=== PATIENT | female | born 1955 | race Caucasian/White ===

== ENCOUNTER → 2018-10-13 | Outpatient (CLI) | payer BC ==
--- NOTE | 2018-10-14 12:04 | Diagnostic Imaging Report ---
INDICATION: Routine screening. COMPARISON: 07/07/2014 and 05/18/2013. TECHNIQUE: 2D and 3D bilateral screening mammography was performed with CAD. FINDINGS: Both breasts are heterogeneously dense, limiting the sensitivity of mammography. The parenchymal pattern is stable. No dominant mass or malignant appearing microcalcifications are seen. The axillae are unremarkable. IMPRESSION: No mammographic features suspicious for malignancy are identified. ACR BI-RADS Category 1: Negative. Result letter will be mailed to the patient. Note: At least 10% of breast cancer is not imaged by mammography. Dictated by: Dictated on workstation # [id number]
== END ==
LOC: RAD 10:55
PROVIDERS: ATTEND Obstetrics & Gynecology
DX: Z12.31 Encounter for screening mammogram for malignant neoplasm of breast (principal)
CPT/HCPCS: 77067

== ENCOUNTER 2019-01-01 20:20 | Emergency (ER) | payer BC ==
[~2019-01-01] VITALS: Ht 157.5 cm; Wt 67.1 kg
--- NOTE | 2019-01-01 20:26 | NUR ---
C COLLAR APPLIED AT THIS TIME BY Gonzalo HOLLINS APRN.
--- NOTE | 2019-01-01 20:35 | ED Head Injury ---
General Stated Complaint: FALL/FACIAL INJ Source: patient Exam Limitations: no limitations History of Present Illness Date Seen by Provider: Jan 01, 2019 Time Seen by Provider: 20:32 Initial Comments To ER by private vehicle with reports of a head injury. Patient was trying to get into the vehicle when she tripped, landed on her knees and then fell forward striking the nose on the ground. She initially had a bloody nose which has since stopped. She does have some swelling around the nose, there was brief loss of consciousness, headache, diaphoresis, and yawning. She does have some midline posterior neck pain as well. 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 Occurred: just prior to arrival Severity: moderate Location: frontal Loss of Consciousness: no loss of consciousness Allergies and Home Medications Allergies Coded Allergies: No Known Drug Allergies (Unverified , 12/22/14) Home Medications Amoxicillin 500 Mg Capsule, 500 MG PO TID Prescribed by: JENIFFER HOLLINS on 01/01/19 [id number] Patient Home Medication List Home Medication List Reviewed: Yes Review of Systems Review of Systems Constitutional: see HPI Eyes: No Symptoms Reported Ears, Nose, Mouth, Throat: no symptoms reported Respiratory: no symptoms reported Cardiovascular: no symptoms reported Genitourinary: no symptoms reported Musculoskeletal: no symptoms reported Skin: no symptoms reported Psychiatric/Neurological: No Symptoms Reported Endocrine: No Symptoms Reported (and this is on estrogen mother) Hematologic/Lymphatic: No Symptoms Reported Past Rpwrvim-Blirco-Qwmpss Hx Patient Social History Recent Foreign Travel: No Contact w/Someone Who Travel: No Physical Exam Vital Signs Vital Signs - First Documented 01/01/19 01/01/19 20:26 21:31 Temp 96.7 Pulse 78 Resp 18 B/P (MAP) 154/101 (118) Pulse Ox 100 Capillary Refill : Height, Weight, BMI Height: '" Weight: lbs. oz. kg; BMI Method: General Appearance: WD/WN, no apparent distress, other (. Cervical collar applied. There is no septal hematoma or active nasal bleeding. ) HEENT: PERRL/EOMI, normal ENT inspection Neck: non-tender, full range of motion Respiratory: no respiratory distress, no accessory muscle use Extremities: normal range of motion, non-tender Psychiatric: alert [place] Nerves: normal hearing, normal speech, PERRL Skin: normal color, warm/dry Gabriel Coma Score Best Eye Response: (4) Open Spontaneously Best Verbal Response: (5) Oriented Best Motor Response: (6) Obeys Commands [place] Total: 15 Progress/Results/Core Measures Results/Orders My Orders Orders - JENIFFER HOLLINS APRN Ct Head/Face/Cervical Wo (01/01/19 20:31) Knee, 2 Views, Bilateral (01/01/19 20:31) Rx-Hydrocodone/Apap 5-325 Mg (Rx-Vicodin (01/01/19 21:30) Amoxicillin Capsule (Polymox Capsule) (01/01/19 21:30) Amoxicillin Capsule (Polymox Capsule) (01/01/19 21:21) Medications Given in ED Current Medications Medications Dose Ordered Sig/Nida Route Start Time Stop Time Status Last Admin Dose Admin Acetaminophen/ Hydrocodone Bitart 1 ea Q4H PRN PO 01/01/19 21:30 01/01/19 21:33 DC 01/01/19 21:26 1 EA Vital Signs/I&O 01/01/19 01/01/19 20:26 21:31 Temp 96.7 96.7 Pulse 78 72 Resp 18 18 B/P (MAP) 154/101 (118) 148/76 (100) Pulse Ox 100 Diagnostic Imaging Diagonstic Imaging: CT Comments NAME: ROGERIO PERES [facility] REC#: [id number] PT STATUS: REG ER : 1955 PHYSICIAN: JENIFFER HOLLINS APRN ADMIT DATE: 01/01/19/ER Draft Date of Exam:01/01/19 CT HEAD/FACE/CERVICAL WO PROCEDURE: CT head, face and cervical spine without contrast. TECHNIQUE: Multiple contiguous axial images were obtained through the head, neck and facial bones without the use of intravenous contrast. Sagittal and coronal reformations through the cervical spine and facial bones were also performed. Auto Exposure Controls were utilized during the CT exam to meet ALARA standards for radiation dose reduction. INDICATION: Fall, head, neck and face pain, trauma. COMPARISON: None. FINDINGS: CT head: Ventricles are normal in size, shape and position. There is no midline shift or mass effect. There is no hemorrhage or evidence of acute ischemia. No extra-axial fluid collection is seen. There is no skull fracture. IMPRESSION: Negative CT head. CT face: There is a nondisplaced fracture of the nasal bone. Nasal septum is midline. No additional facial fracture is seen. The globes are intact. Temporomandibular joints appear grossly normal. There is no osseous lesion. Paranasal sinuses are clear. IMPRESSION: Nondisplaced nasal bone fracture. CT cervical spine: Alignment is normal. There is no subluxation or fracture. Mild to moderate degenerative changes are seen throughout the disc spaces and facet joints. No soft tissue abnormality is seen. IMPRESSION: No traumatic malalignment or fracture. Dictated on workstation # [id number] Dict: 01/01/192055 Trans: 01/01/192110 [facility] [id number] Interpreted by: ARACELI HOSKINS Electronically signed by: Departure Communication (Admissions) 2-C collar removed. Alert and oriented GCS 15. No nausea. Offered Zofran but patient declined. We will discharge 2. Headache. Patient was concerned about the etiology of her yawning. Discussed with her the likely from the concussion or perhaps with the diaphoresis she had a vasovagal episode at some point. Impression Primary Impression: Nasal bone fracture Qualified Codes: S02.2XXA - Fracture of nasal bones, initial encounter for closed fracture Additional Impression: Concussion Qualified Codes: S06.0X9A - Concussion with loss of consciousness of unspecified duration, initial encounter Disposition: 01 HOME, SELF-CARE Condition: Stable Departure-Patient Inst. Decision time for Depature: 21:17 Referrals: SPIKE PARKER MD (PCP/Family) Primary Care Physician Patient Instructions: Concussion, Adult (DC), Nose Fracture Add. Discharge Instructions: 1. Ice pack to the nose at 30 minute intervals 2. Pain medication as directed 3. Antibiotics as directed Scripts Amoxicillin (Amoxicillin) 500 Mg Capsule 500 MG PO TID, #9 CAP 0 Refills Prov: JENIFFER HOLLINS SILK SCREEN PROCESSOR 01/01/19 JENIFFER HOLLINS SILK SCREEN PROCESSOR Jan 01, 2019 20:35
--- NOTE | 2019-01-01 21:12 | Diagnostic Imaging Report ---
PROCEDURE: CT head, face and cervical spine without contrast. TECHNIQUE: Multiple contiguous axial images were obtained through the head, neck and facial bones without the use of intravenous contrast. Sagittal and coronal reformations through the cervical spine and facial bones were also performed. Auto Exposure Controls were utilized during the CT exam to meet ALARA standards for radiation dose reduction. INDICATION: Fall, head, neck and face pain, trauma. COMPARISON: None. FINDINGS: CT head: Ventricles are normal in size, shape and position. There is no midline shift or mass effect. There is no hemorrhage or evidence of acute ischemia. No extra-axial fluid collection is seen. There is no skull fracture. IMPRESSION: Negative CT head. CT face: There is a nondisplaced fracture of the nasal bone. Nasal septum is midline. No additional facial fracture is seen. The globes are intact. Temporomandibular joints appear grossly normal. There is no osseous lesion. Paranasal sinuses are clear. IMPRESSION: Nondisplaced nasal bone fracture. CT cervical spine: Alignment is normal. There is no subluxation or fracture. Mild to moderate degenerative changes are seen throughout the disc spaces and facet joints. No soft tissue abnormality is seen. IMPRESSION: No traumatic malalignment or fracture. Dictated by: Dictated on workstation # [id number]
[2019-01-01] MEDS ORDERED: AMOX500C2 PO (21:18)
--- NOTE | 2019-01-01 21:19 | Diagnostic Imaging Report ---
INDICATION: Fall, bilateral knee pain COMPARISON: None FINDINGS: Multiple views bilateral knees demonstrate no fracture or dislocation. Articular surfaces normal. No joint effusion or foreign body. IMPRESSION: Negative bilateral knees Dictated by: Dictated on workstation # [id number]
[2019-01-01] MEDS ORDERED: AMOXICILLIN 500 MG (POLYMOX) CAP PO STA (21:21)
--- NOTE | 2019-01-01 21:25 | NUR ---
C COLLAR REMOVED AT THIS TIME BY Gonzalo HOLLINS APRN.
[2019-01-01] MEDS ORDERED: AMOXICILLIN 250 MG (POLYMOX) CAP PO SCH (21:30)
[2019-01-01] MEDS ORDERED: RX-HYDROCODONE/APAP 5/325 MG #4 TAB PK PO PRN (21:30)
[2019-01-01 21:31] VITALS: BP 148/76
== END 2019-01-01 21:33 | disposition home or self-care (01) ==
LOC: EDUNIT# 20:20 → ER 20:21
DX: S06.0X0A Concussion without loss of consciousness, initial encounter (principal); S02.2XXA Fracture of nasal bones, initial encounter for closed fracture; R40.2142 Coma scale, eyes open, spontaneous, at arrival to emergency department; R40.2252 Coma scale, best verbal response, oriented, at arrival to emergency department; R40.2362 Coma scale, best motor response, obeys commands, at arrival to emergency department; W01.198A Fall on same level from slipping, tripping and stumbling with subsequent striking against other object, initial encounter
CPT/HCPCS: 70450; 70486; 72125

== ENCOUNTER 2019-05-06 12:36 | Outpatient (CLI) | payer BC ==
[~2019-05-06] VITALS: Ht 160 cm; Wt 72.9 kg
[~2019-05-06 12:36] MED LIST: AMOX500C2 PO
[2019-05-06] MEDS ORDERED: CALC600T12 PO (12:51)
[2019-05-06] MEDS ORDERED: MAGN400C PO (12:51)
[2019-05-06] MEDS ORDERED: ESTR0.62 PO (12:51)
[2019-05-06] MEDS ORDERED: SIMV40TA4 PO (12:51)
[2019-05-06] MEDS ORDERED: ASPI-586 PO (12:51)
[2019-05-06] MEDS ORDERED: TRIA1CAP4 PO (12:51)
[2019-05-06] MEDS ORDERED: DULO60CA59 PO (12:51)
[2019-05-06 12:53] VITALS: BP 164/88
[2019-05-06] MEDS ORDERED: OMEP40CA36 PO (12:53)
[2019-05-06 13:26] LABS: BASOPHILS % (AUTO) 0 % (0-10); EOSINOPHILS # (AUTO) 0.1 10^3/uL (0.0-0.3); EOSINOPHILS % (AUTO) 1 % (0-10); HEMATOCRIT 35 % (35-52); HEMOGLOBIN 11.6 G/DL (11.5-16.0); LYMPHOCYTES # (AUTO) 2.4 X 10^3 (1.0-4.0); LYMPHOCYTES % (AUTO) 24 % (12-44); MEAN CORPUSCULAR HEMOGLOBIN 28 PG (25-34); MEAN CORPUSCULAR HGB CONC 33 G/DL (32-36); MEAN CORPUSCULAR VOLUME 84 FL (80-99); MEAN PLATELET VOLUME 9.5 FL (7.4-10.4); MONOCYTES # (AUTO) 0.7 X 10^3 (0.0-1.0); MONOCYTES % (AUTO) 7 % (0-12); NEUTROPHILS # (AUTO) 6.7 X 10^3 (1.8-7.8); NEUTROPHILS % (AUTO) 68 % (42-75); PLATELET COUNT 411 10^3/uL (130-400); RED CELL DISTRIBUTION WIDTH 15.6 % (10.0-14.5); WHITE BLOOD COUNT 9.9 10^3/uL (4.3-11.0)
== END 2019-05-06 15:30 | disposition home or self-care (01) ==
LOC: PREOP 12:36
PROVIDERS: ATTEND Obstetrics & Gynecology
DX: Z01.812 Encounter for preprocedural laboratory examination (principal); Z11.2 Encounter for screening for other bacterial diseases; N81.10 Cystocele, unspecified; N39.3 Stress incontinence (female) (male)
CPT/HCPCS: 36415; 85025; 87081

== ENCOUNTER 2019-05-10 06:11 | Day surgery (SDC) | payer BC ==
[2019-05-10] VITALS (12 sets, daily range): BP systolic 132–167; BP diastolic 59–84
[~2019-05-10] VITALS: Ht 160 cm; Wt 72.9 kg
[~2019-05-10 06:11] MED LIST changes: +ASPI-586 PO; +CALC600T12 PO; +DULO60CA59 PO; +ESTR0.62 PO; +MAGN400C PO; +OMEP40CA36 PO; +SIMV40TA4 PO; +TRIA1CAP4 PO
[2019-05-10] MEDS ORDERED: LACTATED RINGERS 1,000 ML IV PRN (06:16)
[2019-05-10] MEDS ORDERED: cefTRIAXone FOR IV USE 1,000 MG in WATER (STERILE) FOR INJECTION 10 ML IV ONE (06:30)
[2019-05-10] MEDS ORDERED: ESTRADIOL VAGINAL CREAM 42.5 GM (ESTRACE) VG ONE (06:34)
[2019-05-10] MEDS ORDERED: VASOPRESSIN INJECTION 20 UNIT/ML VIAL ONE (06:34)
[2019-05-10] MEDS ORDERED: NS (IVPB) 100 ML ONE (06:34)
[2019-05-10] MEDS ORDERED: ESTROGENS CONJ. CREAM 30 GM (PREMARIN) TUBE ONE (06:36)
[2019-05-10] MEDS ORDERED: WATER (STERILE) FOR INJECTION 10 ML ONE (06:47)
[2019-05-10] MEDS ORDERED: cefTRIAXone 1,000 MG IV (ROCEPHIN) VIAL ONE (06:47)
[2019-05-10] MEDS ORDERED: proPOfol 200 MG/20 ML (DIPRIVAN) VIAL IV ONE (07:04)
[2019-05-10] MEDS ORDERED: LIDOCAINE PF 2% 5 ML (XYLOCAINE) VIAL ONE (07:04)
[2019-05-10] MEDS ORDERED: SEVOFLURANE (ULTANE) 15 ML INHAL SOLN ONE ×3 (07:04→08:00)
[2019-05-10] MEDS ORDERED: fentaNYL INJECTION 100 MCG/2 ML AMP ONE (07:05)
[2019-05-10] MEDS ORDERED: MIDAZOLAM 2 MG/2 ML (VERSED) VIAL ONE (07:05)
--- NOTE | 2019-05-10 07:07 | History & Physical-Surgical ---
HPO-Surgical History of Present Illness Chief Complaint: Leakage of urine Diagnosis/Surgical Indication: RICHARDSON, CYSTOCELE Procedure: ANTERIOR COLPORRHAPHY, PVS WITH CYSTO Date of Surgery: May 10, 2019 Weight (Pounds): 148 Height (Feet): 5 Height (Inches): 2.00 Allergies and Home Medications Allergies Coded Allergies: No Known Drug Allergies (Unverified , 05/06/19) Home Medications Aspirin 81 Mg Tablet.dr, 81 MG PO DAILY, (Reported) Calcium Carbonate 600 Mg Tablet, 600 MG PO DAILY, (Reported) Duloxetine HCl 60 Mg Capsule.dr, 60 MG PO HS, (Reported) Estrogens, Conjugated 0.625 Mg Tablet, 0.625 MG PO HS, (Reported) Magnesium Oxide 400 Mg Capsule, 400 MG PO DAILY, (Reported) Omeprazole 40 Mg Capsule.dr, 40 MG PO BID, (Reported) Simvastatin 40 Mg Tablet, 40 MG PO HS, (Reported) Triamterene/Hydrochlorothiazid 1 Each Capsule, 1 EACH PO DAILY, (Reported) Patient Home Medication List Home Medication List Reviewed: Yes Past Ctfpwbb-Tlkydb-Sbpelu Hx Patient Social History Marrital Status: Alcohol Use: Rarely Uses Recreational Drug Use: No Smoking Status: Never a Smoker 2nd Hand Smoke Exposure: No Recent Foreign Travel: No Contact w/other who traveled: No Recent Hopitalizations: No Recent Infectious Disease Expo: No Immunizations Up To Date Pediatric: No Date of Influenza Vaccine: Feb 22, 2019 Seasonal Allergies Seasonal Allergies: Yes Surgeries Yes Hysterectomy, Oophorectomy, Tonsillectomy Respiratory No Cardiovascular Yes ("FLUID RETENTION") High Cholesterol, Hypertension Neurological Yes Headaches /Migraines Reproductive System Sexually Transmitted Disease: No HIV/AIDS: No 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: Hysterectomy Genitourinary Yes (RICHARDSON, CYSTOCELE) Gastrointestinal Yes Gastroesophageal Reflux, Chronic Constipation Musculoskeletal Yes Chronic Back Pain Endocrine History of Endocrine Disorders: No HEENT History of HEENT Disorders: Yes (GLASSES) Loss of Vision: Denies Hearing Impairment: Denies Cancer No Psychosocial History of Psychiatric Problem: Yes Behavioral Health Disorders: Depression Integumentary History of Skin or Integumenta: No Blood Transfusions History of Blood Disorders: No Adverse Reaction to a Blood Tr: No (N/A) Exam Vital Signs Vital Signs 05/10/19 06:30 Temp 36.3 Pulse 80 Resp 18 B/P (MAP) 149/77 (101) Pulse Ox 98 O2 Delivery Room Air Capillary Refill : General Appearance: Alert, Oriented X3 HEENT: Atraumatic Respiratory: Clear to Auscultation Cardiovascular: Regular Rate Abdominal: No Tenderness Extremities: No Cyanosis Skin: No Significant Lesion Neuro: Normal Gait, Normal Speech Psych/Mental Status: Mental Status NL Assessment/Plan Admission Diagnosis 64 yo female with RICHARDSON Grade 3 cystocele Admission Status: Observation Reason for Inpatient Admission: Overnight stay for cystocele repair. SHARLENE ABERNATHY DO May 10, 2019 07:06
[2019-05-10] MEDS ORDERED: HYDR-4226 PO (07:12)
[2019-05-10] MEDS ORDERED: IBUP-1773 PO (07:12)
--- NOTE | 2019-05-10 07:13 | Discharge Inst-Women's Service ---
Discharge Inst-Women's Serv Depart Medication/Instructions New, Converted or Re-Newed RX: RX on Chart Problems Reviewed?: Yes Consults/Follow Up Additional Follow Up: Yes Orders/Referrals Dr. Abernathy in 6 weeks Activity Activity: Activity as Tolerated Driving Instructions: No Driving for 2 Weeks NO SMOKING: NO SMOKING Nothing Inside Vagina: No Douching, No [place], No Tampons Diet Discharge Diet: No Restrictions Symptoms to Report to : Bleeding Excessive, Pain Increased, Fever Over 101 Degrees F, Vaginal Bleeding Increase, Questions/Concerns For Any Problems or Questions: Contact Your Physician SHARLENE ABERNATHY DO May 10, 2019 07:13
[2019-05-10] MEDS ORDERED: HYDROmorphone 2 MG/ML VIAL (DILAUDID) IV PRN (07:15)
[2019-05-10] MEDS ORDERED: HYDROcodone/APAP 5 MG/325 MG (LORTAB) TAB PO PRN (07:15)
--- NOTE | 2019-05-10 07:19 | Progress Note-Pre Operative ---
Pre-Operative Progress Note H&P Reviewed The H&P was reviewed, patient examined and no changes noted. Date Seen by Provider: May 10, 2019 Time Seen by Provider: 07:18 Date H&P Reviewed: May 10, 2019 Time H&P Reviewed: 07:18 Pre-Operative Diagnosis: INCONTINENCE CONCHIS ELAINE MD May 10, 2019 07:18
--- NOTE | 2019-05-10 07:20 | Progress Note-Post Operative ---
Post-Operative Progess Note Surgeon (s)/Installment Dealer (s) Surgeon CONCHIS ELAINE MD Installment Dealer: SHARAD Pre-Operative Diagnosis INCONTINENCE Post-Operative Diagnosis SAME Procedure & Operative Findings Date of Procedure 05/10/19 Procedure Performed/Findings PVS AND CYSTOSCOPY Anesthesia Type GENERAL Estimated Blood Loss Estimated blood loss (mL): NEGLIGIBLE Specimens/Packing Specimens Removed NONE Packing: ESTRACE VAGINAL PACK CONCHIS ELAINE MD May 10, 2019 07:20
[2019-05-10] MEDS ORDERED: DEXAMETHASONE 10 MG/ML (DECADRON) 1 ML VIAL ONE (07:59)
[2019-05-10] MEDS ORDERED: ONDANSETRON 4 MG/2 ML (SDV) Z0FRAN ONE (07:59)
[2019-05-10] MEDS ORDERED: morphine INJ 10 MG/ML 1ML (SYR OR VIAL) ONE (08:32)
[2019-05-10] MEDS ORDERED: morphine INJ 10 MG/ML 1ML (SYR OR VIAL) IVP ONE (08:45)
[2019-05-10] MEDS ORDERED: ONDANSETRON 4 MG/2 ML (SDV) Z0FRAN IVP PRN (08:45)
[2019-05-10] MEDS ORDERED: D5 LR IV SOLUTION 1,000 ML IV ONE (09:39)
[2019-05-10] MEDS ORDERED: KETOROLAC 15 MG/ML VIAL ONE (09:39)
--- NOTE | 2019-05-10 09:40 | NUR ---
ROGERIO PERES] admitted to room 3306, with an admitting diagnosis of ANTERIOR REPAIR WITH PUBOVAGINAL SLING WITH CYSTO, on 05/10/19 from [facility] via , accompanied by .ROGERIO PERES introduced to surroundings, call light, bed controls, phone, TV, temperature control, lights, meal times, smoking policy, visitor policy, side rail policy, bathrooms and showers. Patient Rights given to patient in the handbook.ROGERIO PERES verbalizes understanding that [facility] is not responsible for the loss or damage to any personal effects or valuables that are kept in the patients posession during their hospitalization. The following Patient Care Plans were discussed with the : Discharge Planning, ,, and . ROGERIO PERES verbalizes understanding of Interdisciplinary Patient Education. Patient and/or family were informed about the Rapid Response Team and its purpose.
[2019-05-10] MEDS: D5 LR IV SOLUTION 1,000 ML IV SCH ×2 (09:45→19:44)
[2019-05-10] MEDS: KETOROLAC 15 MG/ML VIAL IVP SCH ×3 (09:45→22:46)
--- NOTE | 2019-05-10 09:45 | NUR ---
INTIAL ASSESSMENT COMPLETED, VSS, NO DISTRESS NOTED, SEE INTERVENTIONS OF DETAILED ASSESSMENTS, PLAN OF CARE DISCUSSED WITH PT/SO NO QUESTIONS NOTED. WILL MONITOR CLOSELY. NO DISTRESS NOTED.
[2019-05-10] MEDS ORDERED: TOPI50TA13 PO (10:00)
[2019-05-10] MEDS ORDERED: PATIENT MAY USE OWN MEDS, ALL MC SCH (10:15)
--- NOTE | 2019-05-10 10:40 | NUR ---
PT RESTING WITH NO C/O OR QUESTION NOTED, WILL MONITOR CLOSELY.
--- NOTE | 2019-05-10 11:13 | Anesthesia-General Post-Op ---
General Patient Condition Mental Status/LOC: Same as Preop Cardiovascular: Satisfactory Nausea/Vomiting: Absent Respiratory: Satisfactory Pain: Controlled Complications: Absent Post Op Complications Complications None Follow Up Care/Instructions Patient Instructions None needed. Anesthesia/Patient Condition Patient Condition Patient is doing well, no complaints, stable vital signs, no apparent adverse anesthesia problems. No complications reported per nursing. GERMAINE ELLISON CRNA May 10, 2019 11:13
[2019-05-10] MEDS ORDERED: ceFAZolin INJECTION 1,000 MG in WATER (STERILE) FOR INJECTION 10 ML IV SCH (12:00)
--- NOTE | 2019-05-10 14:27 | OPERATIVE REPORT ---
DATE OF SERVICE: 05/10/2019 PREOPERATIVE DIAGNOSIS: Urinary incontinence. POSTOPERATIVE DIAGNOSIS: Urinary incontinence. OPERATION PERFORMED: Pubovaginal sling and cystoscopy. SURGEON: Kishan Elaine MD CANCER SPEC: Rony Escamilla DO. ANESTHESIA: General. COMPLICATIONS: None. DESCRIPTION OF PROCEDURE: After Dr. Escamilla performed the first part of his surgery, that he will dictate, I inserted a Ivy catheter draining clear urine. I passed the Solyx device using the described technique. The sling was sitting nicely under the mid urethra with no tension, no twist, passage of a curved hemostat easily between it and the underlying tissue. I removed the Ivy catheter and performed cystoscopy to confirm the integrity of the bladder, ureteral orifices and urethra with no foreign body and presence of the sling under the mid urethra. I left the bladder half full to perform the Valsalva maneuver manually after removing the cystoscope and it was negative. I reinserted a Ivy catheter, draining clear fluid. Estimated blood loss negligible. The patient tolerated the procedure and anesthesia well and Dr. Escamilla performed the rest of his surgery that he will dictate. Job ID: [id number] DocumentID: [id number] Dictated Date: 05/10/2019 08:16:27 Informatics Educator Date: 05/10/2019 14:27:16 Dictated By: KISHAN ELAINE MD
--- NOTE | 2019-05-10 14:36 | OPERATIVE REPORT ---
DATE OF SERVICE: PREOPERATIVE DIAGNOSES: 1. A 64-year-old female with grade III cystocele. 2. Stress urinary incontinence. POSTOPERATIVE DIAGNOSES: 1. A 64-year-old female with grade III cystocele. 2. Stress urinary incontinence. PROCEDURE: Anterior colporrhaphy with midurethral sling placement by Dr. Bah. SURGEON: Sharlene Abernathy DO: COSURGEON: Kishan Bah MD. ANESTHESIA: General endotracheal. ESTIMATED BLOOD LOSS: Minimal. URINE OUTPUT: 10 mL clear at the end of the procedure. FLUIDS: 600 mL lactate Ringer solution. FINDINGS: As listed in the diagnoses above. Grossly normal appearing female external genitalia otherwise. SPECIMEN SENT: None. INDICATIONS FOR PROCEDURE: This is a 64-year-old female is a patient, who is coming to my office for evaluation of the cystocele, was found to have some urethral descent as well and sent to Dr. Bah for evaluation for urethropexy in the form of urethral sling and he agreed with the assessment and agreed to plan this procedure together with myself to perform anterior colporrhaphy and a midurethral sling placement. Risks of the procedure were discussed with the patient both by me, Dr. Bah in the preoperative area. After all of her questions were answered, consent was obtained and the patient was taken to the operating room. OPERATIVE REPORT IN DETAIL: Once in the operating room, anesthesia was found to be adequate. She was placed in the dorsal lithotomy position, prepped and draped in the normal sterile fashion. A Ivy catheter was placed. A timeout was performed. A weighted speculum inserted to the patient's vagina, which allows the posterior wall of the vagina to be retracted out of the way and allows me to address the cystocele. I injected all the margins of the cystocele defect in the submucosal depth using vasopressin, a concentration of 20 units in 100 mL of normal saline. After this was done and the tissue was blanched, I made an incision at the most distal margin of the cystocele using a knife. I grasped my incision margin with an Allis clamp and then undermined down the midline of the incision using Metzenbaum scissors down the midline of the cystocele defect. After I undermined using the Metzenbaum scissors, I made an incision using Metzenbaum scissors down the midline of the cystocele defect incising the mucosa and submucosa. I then grasped the lateral aspects of the incision using T clamps and bluntly dissected off the underlying vesicovaginal fascia. This was done on both sides of the incision to the extent and the lateral margins of the cystocele itself. After this was done, I then performed multiple plicating sutures using 0 Vicryl suture in an interrupted fashion grasping the vesicovaginal fascia and plicating the cystocele as I reapproximated the vesicovaginal fascia at its lateral margins. After this was done, Dr. Bah took over the case and performed his sling placement after which there was excellent lift noted of the entire anterior vaginal wall including the urethra. I then trimmed the excess vaginal mucosa and began the closure by closing the vaginal mucosa using 3-0 Vicryl suture in running locked fashion, after which there was no active bleeding noted from any of my dissection planes. I then packed the vagina using Premarin soaked vaginal packing. I removed the weighted speculum and Ivy catheter was left in place. The patient tolerated the procedure well and was taken to the recovery area in stable condition. Lap and sponge counts were correct at the end of the procedure. Instrument counts were correct as well. One gram of Ancef was given preoperatively for infection prophylaxis. Job ID: [id number] DocumentID: [id number] Dictated Date: 05/10/2019 09:00:58 Packager And Strapper Date: 05/10/2019 14:35:03 Dictated By: SHARLENE ABERNATHY DO
--- NOTE | 2019-05-10 18:19 | NUR ---
DR ABERNATHY CALLED ABOUT BLOOD PRESSURE.
--- NOTE | 2019-05-10 19:45 | NUR ---
PT SITTING UP IN BED, WATCHING TV. SELF INTRODUCED. NEW BAG OF IV FLUIDS HUNG AND INFUSING @ 100 ML/HR/PUMP. PT DENIES ANY NEEDS AT THIS TIME, INFORMED OF MEDS BEING DUE AROUND 2100 AND PERFORMING VS AND ASSESSMENT AT THAT TIME. CALL LIGHT WITHIN REACH.
[2019-05-10] MEDS ORDERED: TRIAMTERENE/HCTZ 75-50 (MAXZIDE,DYAZIDE) TABLET PO SCH (21:00)
[2019-05-10] MEDS ORDERED: DULOXETINE HCL 60 MG PO SCH (21:00)
[2019-05-10] MEDS ORDERED: TOPIRAMATE PO SCH ×2 (21:00)
[2019-05-10] MEDS ORDERED: ESTROGENS CONJ 0.625 MG (PREMARIN) TAB PO SCH (21:00)
--- NOTE | 2019-05-10 21:05 | NUR ---
PT SITTING UP IN BED, WATCHING TV. VS OBTAINED. MEDS GIVEN PO; SEE EMAR FOR FURTHER. INITIAL SHIFT ASSESSMENT COMPLETED; SEE INTERVENTION FOR FURTHER. FRESH ICE WATER OBTAINED. POC REVIEWED, PT VERBALIZES UNDERSTANDING AND DENIES ANY NEEDS OR QUESTIONS AT THIS TIME. CALL LIGHT WITHIN REACH.
[2019-05-11 01:07] VITALS: BP 127/59
[2019-05-11] MEDS: KETOROLAC 15 MG/ML VIAL IVP SCH (04:56)
[2019-05-11 04:58] VITALS: BP 162/72
[2019-05-11 05:06] LABS: BASOPHILS % (AUTO) 0 % (0-10); EOSINOPHILS % (AUTO) 0 % (0-10); HEMATOCRIT 32 % (35-52); HEMOGLOBIN 10.6 G/DL (11.5-16.0); LYMPHOCYTES # (AUTO) 3.1 X 10^3 (1.0-4.0); LYMPHOCYTES % (AUTO) 17 % (12-44); MEAN CORPUSCULAR HEMOGLOBIN 28 PG (25-34); MEAN CORPUSCULAR HGB CONC 33 G/DL (32-36); MEAN CORPUSCULAR VOLUME 85 FL (80-99); MEAN PLATELET VOLUME 9.5 FL (7.4-10.4); MONOCYTES # (AUTO) 1.2 X 10^3 (0.0-1.0); MONOCYTES % (AUTO) 7 % (0-12); NEUTROPHILS # (AUTO) 13.3 X 10^3 (1.8-7.8); NEUTROPHILS % (AUTO) 76 % (42-75); PLATELET COUNT 380 10^3/uL (130-400); RED CELL DISTRIBUTION WIDTH 15.1 % (10.0-14.5); WHITE BLOOD COUNT 17.6 10^3/uL (4.3-11.0)
[2019-05-11 05:38] LABS: BUN/CREATININE RATIO 13; CARBON DIOXIDE 19 MMOL/L (21-32); CHLORIDE 109 MMOL/L (98-107); CREATININE SERUM 0.69 MG/DL (0.60-1.30); GFR ESTIMATED > 60; GLUCOSE 114 MG/DL (70-105); POTASSIUM 3.8 MMOL/L (3.6-5.0); SODIUM 140 MMOL/L (135-145)
[2019-05-11 05:48] LABS: LYMPHOCYTES % (MANUAL) 15 %; MONOCYTES % (MANUAL) 6 %; NEUTROPHILS % (MANUAL) 79 %
--- NOTE | 2019-05-11 07:00 | NUR ---
report from ishaan gilmore rn
[2019-05-11 07:45] VITALS: BP 172/86
--- NOTE | 2019-05-11 07:45 | NUR ---
pt up to bathroom. void 100ml cl yellow urine. pt reports feeling "empty". shift assessment completed. blood pressure elevated at 172/86. pt denies any symptoms. resting in bed. skin color pink tones. resp unlabored with breath sounds CTA. HRRR. abd soft with positive bowel sounds. Pt reports positive flatus. denies pain or soreness of perineum. moves all extremities actively. SCD's on. 75% of breakfast meal consumed. no requests for pain medications.
[2019-05-11] MEDS ORDERED: TRIAMTERENE/HCTZ 75-50 (MAXZIDE,DYAZIDE) TABLET PO ONE ×2 (08:00→08:30)
[2019-05-11] MEDS ORDERED: EST30C VG (08:13)
--- NOTE | 2019-05-11 08:30 | NUR ---
dr ferraro here and dr davis. ok to discharge pt to home with follow up dr ferraro in [address] davis in 2 weeks.
--- NOTE | 2019-05-11 08:35 | Progress Note - Urology ---
Progress Note-Urology Progress Notes/Assess & Plan Progress/Assessment & Plan VOIDING WELL, PVR 43CC. DRY. HAPPY. HOME WITH INSTRUCTIONS Final Diagnosis INCONTINENCE CONCHIS ELAINE MD May 11, 2019 08:35
[2019-05-11] MEDS ORDERED: TRIAMTERENE/HCTZ 75-50 (MAXZIDE,DYAZIDE) TABLET PO SCH (09:00)
[2019-05-11] MEDS ORDERED: TOPIRAMATE 50 MG PO SCH (09:00)
--- NOTE | 2019-05-11 09:45 | NUR ---
home care instructions reviewed with patient. prescriptions for ibuprofen and norco given to patient. home medications and premarin vag cream given to patient. pt acknowledges understanding of instructions verbally and with her signature .
[2019-05-11] MEDS ORDERED: IBUPROFEN 600 MG (MOTRIN) TAB PO SCH (10:00)
[2019-05-11 10:30] VITALS: BP_DIAS 86
--- NOTE | 2019-05-11 10:30 | NUR ---
saline lock removed and pt discharged to [facility]. accompanied to front exit by the RN.
== END 2019-05-11 10:30 ==
LOC: SDC 06:11 → WS 09:35 → SDC 05-11 10:30
PROVIDERS: ATTEND Obstetrics & Gynecology
DX: N81.10 Cystocele, unspecified (principal); N39.3 Stress incontinence (female) (male); I10 Essential (primary) hypertension; E78.5 Hyperlipidemia, unspecified; K21.9 Gastro-esophageal reflux disease without esophagitis; G43.909 Migraine, unspecified, not intractable, without status migrainosus; E78.00 Pure hypercholesterolemia, unspecified; F32.9 Major depressive disorder, single episode, unspecified; Z90.89 Acquired absence of other organs; Z90.710 Acquired absence of both cervix and uterus; Z79.899 Other long term (current) drug therapy; Z90.722 Acquired absence of ovaries, bilateral; Z83.3 Family history of diabetes mellitus; Z82.49 Family history of ischemic heart disease and other diseases of the circulatory system
CPT/HCPCS: 36415; 80048; 85007; 85027; 86850; 86900; 86901

== ENCOUNTER → 2020-09-12 | Outpatient (CLI) | payer BC ==
[~2020-09-12] MED LIST changes: -CALC600T12 PO; +CALC600T91 PO; +EST30C VG; +HYDR-4226 PO; +IBUP-1773 PO; +OMEP40CA27 PO; -OMEP40CA36 PO; +SIMV40TA25 PO; -SIMV40TA4 PO; +TOPI50TA13 PO
--- NOTE | 2020-09-12 09:04 | Diagnostic Imaging Report ---
INDICATION: EPIGASTRIC PAIN TECHNIQUE: Multiple grayscale sonographic images were obtained of the right upper quadrant of the abdomen. CORRELATION STUDY: None FINDINGS: LIVER: There is uniform echotexture within the visualized portions of the liver. There is normal, hepatopedal direction of flow within the main portal vein. Liver length 14 cm. GALLBLADDER: There is presence of gallstones. Gallstone appears to be perhaps lodged at the level of the gallbladder neck. No significant gallbladder wall thickening and/or pericholecystic fluid. COMMON BILE DUCT: Not discretely localized. No evidence of overt dilatation. PANCREAS: Largely obscured by overlying bowel gas. AORTA/IVC: Not well visualized. RIGHT KIDNEY: 10.6 x 5.4 x 4.3 cm. No hydronephrosis. OTHER: None. IMPRESSION: 1. Cholelithiasis. This includes perhaps a gallstone lodged at the level of the gallbladder neck. No significant gallbladder wall thickening and/or pericholecystic fluid. Common bile duct not visualized but without definitive overt bile duct dilatation. Dictated by: Dictated on workstation # [id number]
== END ==
LOC: RAD 07:00
PROVIDERS: ATTEND Surgery
DX: K80.20 Calculus of gallbladder without cholecystitis without obstruction (principal)
CPT/HCPCS: 76705

== ENCOUNTER 2020-09-29 05:31 | Outpatient (RCR) | payer BC ==
[~2020-09-29] VITALS: Ht 160 cm; Wt 73.9 kg
== END 2020-10-05 09:03 | disposition home or self-care (01) ==
LOC: PREOP 05:31
PROVIDERS: ATTEND Surgery
DX: Z01.812 Encounter for preprocedural laboratory examination (principal); Z12.11 Encounter for screening for malignant neoplasm of colon; K21.9 Gastro-esophageal reflux disease without esophagitis; Z20.822 Contact with and (suspected) exposure to COVID-19
CPT/HCPCS: 87635

== ENCOUNTER 2020-10-03 07:10 | Day surgery (SDC) | payer BC ==
[2020-10-03] VITALS (8 sets, daily range): BP systolic 115–148; BP diastolic 61–76
[~2020-10-03] VITALS: Ht 160 cm; Wt 73.9 kg
[2020-10-03] MEDS ORDERED: LACTATED RINGERS 1,000 ML IV ONE (07:24)
[2020-10-03] MEDS ORDERED: MIDAZOLAM 2 MG/2 ML (VERSED) VIAL ONE (07:24)
[2020-10-03] MEDS ORDERED: PROPOFOL INJECTION 50 ML IV ONE (07:24)
[2020-10-03] MEDS ORDERED: ONDANSETRON 4 MG/2 ML (SDV) Z0FRAN ONE (07:24)
[2020-10-03] MEDS ORDERED: LACTATED RINGERS 1,000 ML IV STA (07:27)
[2020-10-03] MEDS ORDERED: HURRICAINE EXT TUBE (BENZOCAINE) XX PRN (07:30)
--- NOTE | 2020-10-03 08:58 | Progress Note-Post Operative ---
Post-Operative Progess Note Surgeon (s)/Die Operator (s) Surgeon OLVIN ROSENTHAL DO Die Operator: na Pre-Operative Diagnosis gerd, screening colon Post-Operative Diagnosis normal egd, internal hemorrhoids Procedure & Operative Findings Date of Procedure 10/03/20 Procedure Performed/Findings egd c biopsies, colonoscopy Anesthesia Type per quality lead Estimated Blood Loss Estimated blood loss (mL): none Specimens/Packing Specimens Removed antrum, ge OLVIN ROSENTHAL DO October 03, 2020 08:58
--- NOTE | 2020-10-03 08:59 | Discharge Inst-Simple/Standard ---
Discharge Inst-Standard Patient Instructions/Follow Up Plan of Care/Instructions/FU: 2 weeks justin Activity as Tolerated: Yes Discharge Diet: Regular Diet OLVIN ROSENTHAL DO October 03, 2020 08:59
--- NOTE | 2020-10-03 13:01 | OPERATIVE REPORT ---
DATE OF SERVICE: 10/03/2020 PREOPERATIVE DIAGNOSES: Gastroesophageal reflux disease and screening colonoscopy. POSTOPERATIVE DIAGNOSES: Normal esophagogastroduodenoscopy, internal hemorrhoids. PROCEDURE: EGD with biopsies, colonoscopy. SURGEON: Olvin Ware DO ANESTHESIA: Per LEGAL TRANSCRIBER. ESTIMATED BLOOD LOSS: None. COMPLICATIONS: None. INDICATIONS: The patient is a 65-year-old female needing EGD and colonoscopy for GERD and screening colonoscopy. She understands risks and benefits and wishes to proceed. Consent was signed in the chart. DESCRIPTION OF PROCEDURE: The patient was taken to the endoscopy suite, placed in left lateral recumbent position. Timeout was performed. Scope was inserted in the mouth, down the esophagus, stomach and into the duodenum without difficulty. There were no polyps, masses or ulcerations. Scope was then slowly retracted back into the stomach where it was further insufflated. Normal appearance. No polyps, masses or ulcerations. Biopsy of the antrum was obtained. Scope was retroflexed noting no other pathology. Scope was returned to its normal position, slowly withdrawn to distal esophagus. No polyps, masses or ulcerations. Biopsy of the GE junction was obtained. Scope was then slowly retracted back until completely removed, noting no other pathology. Digital rectal exam was performed. There were no palpable polyps, masses or ulcerations. Some internal hemorrhoids. Scope was inserted in the rectum, advanced all the way to cecum with minimal difficulty. Prep was adequate. Scope was then slowly retracted back. No polyps, masses or ulcerations within the cecum, ascending, transverse, descending and sigmoid colon. Once in the rectum, scope was retroflexed noting no other pathology. Scope was returned to its normal position, slowly withdrawn until completely removed. The patient tolerated procedure well without any complications. She was taken to recovery room in stable condition. RECOMMENDATIONS: The patient will follow up in two weeks to discuss pathology results and see how her symptoms are doing. She needs followup on her gallbladder ultrasound. The patient will need repeat colonoscopy in 10 years unless family history of colon cancer, which would then be 5 years. Any issues before that be seen at that time. Job ID: [id number] DocumentID: [id number] Dictated Date: 10/03/2020 09:02:02 Office Helper Date: 10/03/2020 13:01:12 Dictated By: OLVIN WARE DO
--- NOTE | 2020-10-03 14:45 | Anesthesia-General Post-Op ---
MAC Patient Condition Mental Status/LOC: Same as Preop Cardiovascular: Satisfactory Nausea/Vomiting: Absent Respiratory: Satisfactory Pain: Controlled Complications: Absent Post Op Complications Complications None Follow Up Care/Instructions Patient Instructions None needed. Anesthesiology Discharge Order Discharge Order Patient is doing well, no complaints, stable vital signs, no apparent adverse anesthesia problems. No complications reported per nursing. JONO PRIETO CRNA October 03, 2020 14:45
== END 2020-10-03 09:44 | disposition home or self-care (01) ==
LOC: ENDO 07:10
PROVIDERS: ATTEND Surgery
DX: Z12.11 Encounter for screening for malignant neoplasm of colon (principal); K64.8 Other hemorrhoids; K21.00 Gastro-esophageal reflux disease with esophagitis, without bleeding; I10 Essential (primary) hypertension; F43.9 Reaction to severe stress, unspecified; G43.909 Migraine, unspecified, not intractable, without status migrainosus; Z79.899 Other long term (current) drug therapy

== ENCOUNTER → 2020-11-09 | Outpatient (CLI) | payer BC ==
[~2020-11-09] VITALS: Ht 160 cm; Wt 73.9 kg
[~2020-11-09] MED LIST changes: -OMEP40CA27 PO; +OMEP40CA6 PO
== END | disposition home or self-care (01) ==
LOC: PREOP 05:37
PROVIDERS: ATTEND Surgery
DX: Z01.818 Encounter for other preprocedural examination (principal)